=== PATIENT | male | born 1990 | race American Indian/Alaskan Native ===

== ENCOUNTER 2016-11-05 01:24 | Emergency (ER) | payer OTHER ==
[2016-11-05 01:48] VITALS: O2SAT 98
--- NOTE | 2016-11-05 02:39 | C.PDOC ---
History Of Present Illness 26 year old male who presents to the ER with a complaint of congestion, sore throat, and subjective fever since yesterday. Patient states he did not take anything for the symptoms; denies nausea or vomiting. No chest pain, SOB, difficulty breathing or swallowing. Notes h/o URI- feels same way. Time Seen by Provider: 11/05/16 02:00 Chief Complaint (Nursing): Cough, Cold, Congestion History Per: Patient History/Exam Limitations: no limitations Onset/Duration Of Symptoms: Days Current Symptoms Are (Timing): Still Present Location Of Pain: Throat Sick Contacts (Context): None Associated Symptoms: Fever (Subjective), Sore Throat, Nasal Congestion. denies : Nausea, Vomiting Ear Symptoms: Bilateral: None Recent travel outside of the [place]: No Past Medical History Reviewed: Historical Data, Nursing Documentation, Vital Signs Vital Signs: Last Vital Signs Temp 98.0 F 11/05/16 02:43 Pulse 70 11/05/16 02:43 Resp 18 11/05/16 02:43 BP 117/73 11/05/16 02:43 Pulse Ox 98 11/05/16 02:57 - Medical History PMH: No Chronic Diseases Surgical History: No Surg Hx Family History: States: Unknown Family Hx - Social History Hx Alcohol Use: Yes Hx Substance Use: No - Immunization History Hx Influenza Vaccination: No Hx Pneumococcal Vaccination: No Review Of Systems Constitutional: Positive for: Fever (Subjective) ENT: Positive for: Nose Congestion, Throat Pain Gastrointestinal: Negative for: Nausea, Vomiting Physical Exam - Physical Exam Appears: Non-toxic, No Acute Distress Skin: Normal Color, Warm, Dry Head: Atraumatic, Normacephalic Eye(s): bilateral: Normal Inspection, EOMI Ear(s): Bilateral: Normal Nose: Normal Oral Mucosa: Moist Throat: Normal, No Erythema, No Exudate Neck: Normal, Supple Chest: Symmetrical, No Tenderness Cardiovascular: Rhythm Regular, No Murmur Respiratory: Normal Breath Sounds, No Rales, No Rhonchi, No Wheezing Gastrointestinal/Abdominal: Soft, No Tenderness Neurological/Psych: Oriented x3, Normal Speech, Normal Cognition ED Course And Treatment O2 Sat by Pulse Oximetry: 98 (Room air) Pulse Ox Interpretation: Normal Progress Note: Rapid strep and throat culture ordered. Motrin administered. Patient is currently resting comfortably and is in no acute distress, will discharge home and advise to follow up with PMD in 1-2. Discussed symptomatic treatment, and signs of concern. Disposition - Disposition Disposition: HOME/ ROUTINE Disposition Time: 02:38 Condition: STABLE Additional Instructions: Follow up with your primary medical doctor or clinic in 2-5 days for further evaluation. Take medications as prescribed. Return to the emergency department at any time if symptoms persist or worsen. Prescriptions: Guaifen/Dextromethorphan/PE [Mucinex Fast-Max Congest-Cough] 1 each PO Q6 #20 tablet Instructions: Upper Respiratory Infection (ED) Forms: [employer] (Arabic), Work Excuse - Clinical Impression Clinical Impression: Upper respiratory infection - Scribe Statement The provider has reviewed the documentation as recorded by the Scribdonna Jacobsen All medical record entries made by the Scribe were at my direction and personally dictated by me. I have reviewed the chart and agree that the record accurately reflects my personal performance of the history, physical exam, medical decision making, and the department course for this patient. I have also personally directed, reviewed, and agree with the discharge instructions and disposition.
[2016-11-05 03:05] VITALS: BP 117/73; PULSE 70; RESP 18; TEMP 98
== END 2016-11-05 03:02 | disposition home or self-care (01) ==
LOC: C.ER 01:24
DX: J06.9 Acute upper respiratory infection, unspecified (principal)